=== PATIENT | female | born 1985 | race Caucasian/White ===

== ENCOUNTER 2016-07-16 21:41 | Inpatient (IN) | payer OTHER ==
[~2016-07-16] VITALS: Ht 165.1 cm; Wt 59.0 kg
[~2016-07-16 21:41] MED LIST: PUMP INSULIN MC; SYN1 PO
--- NOTE | 2016-07-16 23:29 | ERD ---
ER Documentation Chief Complaint Date/Time DATE: 07/16/16 TIME: 23:26 Chief Complaint c/o bilateral foot/leg swelling x1 week. sob when walking denies cp HPI 30-year-old female presents here in emergency department for complaints of bilateral lower leg swelling for 1 week now. Patient states that it has happened to her before but it did not last for a week. Patient is complaining of bilateral lower leg pain, sharp pain, 8/10 scale, now better or worse with anything. Patient states that she was cleaning the house today, was walking a lot. Patient is diabetic. Patient denies any redness on affected area. Patient denies any fever or chills. Patient does feel some shortness of breath at times and walking. Patient denies any chest pain or palpitations. Patient denies any dizziness. Patient currently takes Lantus and lispro to help with her diabetes type 1. Patient denies any trauma and lower extremities. Patient denies any numbness or tingling. ROS All systems reviewed and are negative except as per history of present illness. Medications Home Meds Active Scripts Levothyroxine Sodium* (Synthroid*) 100 Mcg Tablet, 100 MCG PO BEFORE BREAKFAST, #30 TAB Prov:KEVIN GAN NP 03/30/16 Reported Medications Insulin* PUMP (Insulin* PUMP) 1 Each Pump.resvr, 1 EACH MC . DIRECTED, JEROD 04/10/16 Allergies Allergies: Coded Allergies: No Known Allergy (Unverified , 03/29/16) PMhx/Soc History of Surgery: Yes (C/SECTION X1) Anesthesia Reaction: No Hx Neurological Disorder: No Hx Respiratory Disorders: No Hx Cardiac Disorders: No Hx Psychiatric Problems: No Hx Miscellaneous Medical Probl: Yes (DM, HYPOTHYROIDISM, ANEMIA) Hx Alcohol Use: Yes ("sometimes") Hx Substance Use: No Hx Tobacco Use: Yes Smoking Status: Never smoker FmHx Family History: No coronary disease, No diabetes, No other Physical Exam Vitals Vital Signs Date Time Temp Pulse Resp B/P Pulse Ox O2 Delivery O2 Flow Rate FiO2 07/16/16 22:15 98.4 88 20 179/102 98 Physical Exam GENERAL: The patient is well developed and appropriate for usual state of health, in no apparent distress. CHEST: Clear to auscultation bilaterally. There are no rales, wheezes or rhonchi. HEART: Regular rate and rhythm. No murmurs, clicks, rubs or gallops. No S3 or S4. ABDOMEN: Soft, nontender and nondistended. Good bowel sounds. No rebound or guarding. No gross peritonitis. No gross organomegaly or masses. No Chan sign or McBurney point tenderness. BACK: No midline or flank tenderness. EXTREMITIES: Noted bilateral lower extremities +2 pitting edema, nonerythematous. Negative Homans sign. Equal pulses bilaterally. Full range of motion of other joints of the body. Grossly neurovascularly intact. NEURO: Alert and oriented. Cranial nerves 2-12 intact. Motor strength in all 4 extremities with 5/5 strength. Sensation grossly intact. Normal speech and gait. SKIN: There is no apparent rash or petechia. The skin is warm and dry. HEMATOLOGIC AND LYMPHATIC: There is no evidence of excessive bruising or lymphedema. No gross cervical, axillary, or inguinal lymphadenopathy. Results 24 hrs Laboratory Tests Test 07/16/16 23:38 07/16/16 23:42 Bedside Glucose > 595mg/dL Joshua Test N/A Arterial Blood Date Drawn 07/17/2016 12:11:50 AM Arterial Blood Gas Puncture Site VENOUS LINE Blood Gas Modality ROOM AIR Blood Gas Notified Time 07/17/2016 12:20:44 AM Blood Gas Notified Whom BR Blood Gas Specimen Source Blood venous Blood Gas Temperature 37.0C Carboxyhemoglobin 0.1% FiO2 21.0% Venous Blood Base Excess -3.1mmol/L Venous Blood HCO3 21.7mmol/L Venous Blood Methemoglobin 0.1% Venous Blood Oxygen Saturation 35.6mmHG Venous Blood Oxyhemoglobin 35.5% Venous Blood Total Hemoglobin 12.4g/dl Venous Blood pCO2 (Temp Corrected) 38.0mmHG Venous Blood pH 7.374 Venous Blood pO2 (Temp Corrected) 23.6mmHG I discussed this case with my attending physician, Dr. Sanon, patient has elevated blood glucose, considering her history of DKA, patient will be transferred to ER 1 for further evaluation and treatment, pending order results at this time. Departure Diagnosis: Primary Impression: Hyperglycemia Condition: Stable TERENCE GONZALEZ NP Jul 16, 2016 23:29
[2016-07-17] VITALS (16 sets, daily range): BP systolic 102–126; BP diastolic 66–89; PULSE 96–113; RESP 14–20; Ht 165.1 cm; Wt 59.0 kg
[2016-07-17 00:20] LABS: MODE ROOM AIR; MetHgb Venous 0.1 %; Sample Type Blood venous; Venous COHb 0.1 %; Venous Fraction OxyHgb 35.5 %; Venous Total Hemglobin 12.4 g/dl
[2016-07-17 00:25] LABS: ADD SCAN DIFF NO
[2016-07-17 00:29] LABS: BASOPHIL # 0.1 10^3/ul (0.0-0.1); BASOPHILS % 0.9 % (0.0-2.0); EOSINOPHILS % 0.4 % (0.0-7.0); HEMATOCRIT 34.3 % (37.0-47.0); HEMOGLOBIN 10.6 g/dl (12.0-16.0); LYMPHOCYTES # 2.1 10^3/ul (0.8-2.9); LYMPHOCYTES % 40.1 % (15.0-51.0); MEAN CORPUSCULAR HEMOGLOBIN 27.6 pg (29.0-33.0); MEAN CORPUSCULAR HGB CONC 30.9 g/dl (32.0-37.0); MEAN CORPUSCULAR VOLUME 89.3 fl (82.0-101.0); MEAN PLATELET VOLUME 9.6 fl (7.4-10.4); MONOCYTE # 0.6 10^3/ul (0.3-0.9); MONOCYTES % 11.3 % (0.0-11.0); NEUTROPHIL # 2.5 10^3/ul (1.6-7.5); NEUTROPHILS % 46.9 % (39.0-77.0); PLATELET COUNT 371 10^3/UL (140-415); RED BLOOD COUNT 3.84 10^6/ul (4.20-5.40); RED CELL DISTRIBUTION WIDTH 18.7 % (11.5-14.5); WHITE BLOOD COUNT 5.3 10^3/ul (4.8-10.8)
[2016-07-17 00:41] LABS: ALBUMIN 4.1 g/dl (3.3-4.9)
[2016-07-17 00:42] LABS: POTASSIUM 4.6 mmol/L (3.5-5.1)
[2016-07-17 00:44] LABS: ALBUMIN/GLOBULIN RATIO 0.83; BILIRUBIN,INDIRECT 0.6 mg/dl (0-1.1); BILIRUBIN,TOTAL 0.6 mg/dl (0.2-1.3); CREATININE 0.53 mg/dl (0.44-1.00)
[2016-07-17 00:45] LABS: CALCIUM 9.5 mg/dl (8.4-10.2)
--- NOTE | 2016-07-17 00:48 | RADRPT ---
AMENDMENT: 07/17/2016 12:49:09 AM Jaron Winters D.O PROCEDURE: XR Chest. CLINICAL INDICATION: Shortness of breath. TECHNIQUE: Portable AP upright view of the chest was obtained. COMPARISON: 03/29/2016 FINDINGS: The cardiomediastinal silhouette is within normal limits. The lungs are clear. There is no evidenc e for pleural effusion, pneumothorax or pulmonary vascular congestion. The osseous structures are i ntact with no evidence for acute abnormality. RPTAT:HJJR IMPRESSION: No evidence for acute intrathoracic pathology or interval change from 03/29/2016. Physician Ciera Date Time Electronically viewed and signed by Elder Winters Physician on 07/17/2016 00:49 /
--- NOTE | 2016-07-17 00:49 | RADRPT ---
PROCEDURE: US Lower extremity Venous. CLINICAL INDICATION: Leg pain and swelling TECHNIQUE: Multiple sonographic images of the bilateral lower extremity deep venous system was obt ained utilizing grayscale, color-flow, compressive sonography and doppler imaging with augmentation. COMPARISON: None. FINDINGS: There is normal compressibility / flow within the bilateral common femoral, femoral and popliteal ve ins. The visualized deep veins of the calf are unremarkable. RPTAT:HJJR IMPRESSION: No sonographic evidence for deep venous thrombosis of either lower extremity. Physician Ciera Date Time Electronically viewed and signed by Physician Ciera on 07/17/2016 00:48 /
[2016-07-17] MEDS ORDERED: morphine 4 MG/ML VIAL IV STA (00:53)
[2016-07-17] MEDS ORDERED: ONDANSETRON 4 MG INJ IV STA (00:53)
[2016-07-17] MEDS ORDERED: SOD CHLORIDE 0.9% 1,000 ML IV ONE (01:00)
[2016-07-17] MEDS ORDERED: INSULIN REGULAR, HUMAN 100 UNIT in SOD CHLORIDE 0.9% 99 ML IV STA ×2 (01:09)
[2016-07-17] MEDS ORDERED: INSULIN REGULAR, HUMAN 100 UNIT/1 ML 3ML VIAL IV STA (01:09)
--- NOTE | 2016-07-17 01:45 | ERD ---
ER Documentation Chief Complaint Date/Time DATE: 07/17/16 TIME: 01:44 Chief Complaint c/o bilateral foot/leg swelling x1 week. sob when walking denies cp HPI This is a 22-year-old female comes of bilateral fullness and swelling for the past week. Patient also says her blood sugars were running high. Denies any vomiting but has had positive. Denies any fevers or chills. Denies any other current complaints. ROS All systems reviewed and are negative except as per history of present illness. Medications Home Meds Active Scripts Levothyroxine Sodium* (Synthroid*) 100 Mcg Tablet, 100 MCG PO BEFORE BREAKFAST, #30 TAB Prov:KEVIN GAN CHAPERONE 03/30/16 Reported Medications Insulin* PUMP (Insulin* PUMP) 1 Each Pump.resvr, 1 EACH MC . DIRECTED, JEROD 04/10/16 Allergies Allergies: Coded Allergies: No Known Allergy (Unverified , 03/29/16) PMhx/Soc History of Surgery: Yes (C/SECTION X1) Anesthesia Reaction: No Hx Neurological Disorder: No Hx Respiratory Disorders: No Hx Cardiac Disorders: No Hx Psychiatric Problems: No Hx Miscellaneous Medical Probl: Yes (DM, HYPOTHYROIDISM, ANEMIA) Hx Alcohol Use: Yes ("sometimes") Hx Substance Use: No Hx Tobacco Use: Yes Smoking Status: Never smoker Physical Exam Vitals Vital Signs Date Time Temp Pulse Resp B/P Pulse Ox O2 Delivery O2 Flow Rate FiO2 07/16/16 22:15 98.4 88 20 179/102 98 Physical Exam Const: [] Head: Atraumatic Eyes: Normal Conjunctiva ENT: Normal External Ears, Nose and Mouth. Neck: Full range of motion..~ No meningismus. Resp: Clear to auscultation bilaterally Cardio: Regular rate and rhythm, no murmurs Abd: Soft, non tender, non distended. Normal bowel sounds Skin: No petechiae or rashes Back: No midline or flank tenderness Ext: No cyanosis, or edema Neur: Awake and alert Psych: Normal Mood and Affect Result Diagram: 07/17/16 0005 07/17/16 0005 Results 24 hrs Laboratory Tests Test 07/16/16 23:38 07/16/16 23:42 07/17/16 00:05 Bedside Glucose > 595mg/dL Joshua Test N/A Arterial Blood Date Drawn 07/17/2016 12:11:50 AM Arterial Blood Gas Puncture Site VENOUS LINE Blood Gas Modality ROOM AIR Blood Gas Notified Time 07/17/2016 12:20:44 AM Blood Gas Notified Whom BR Blood Gas Specimen Source Blood venous Blood Gas Temperature 37.0C Carboxyhemoglobin 0.1% FiO2 21.0% Venous Blood Base Excess -3.1mmol/L Venous Blood HCO3 21.7mmol/L Venous Blood Methemoglobin 0.1% Venous Blood Oxygen Saturation 35.6mmHG Venous Blood Oxyhemoglobin 35.5% Venous Blood Total Hemoglobin 12.4g/dl Venous Blood pCO2 (Temp Corrected) 38.0mmHG Venous Blood pH 7.374 Venous Blood pO2 (Temp Corrected) 23.6mmHG Alanine Aminotransferase (ALT/SGPT) 55IU/L Albumin 4.1g/dl Albumin/Globulin Ratio 0.83 Alkaline Phosphatase 345IU/L Anion Gap 30 Aspartate Amino Transf (AST/SGOT) 92IU/L Basophils # 0.110^3/ul Basophils % 0.9% Blood Urea Nitrogen 14mg/dl Calcium Level 9.5mg/dl Carbon Dioxide Level 21mmol/L Chloride Level 89mmol/L Creatinine 0.53mg/dl Direct Bilirubin 0.00mg/dl Eosinophils # 0.010^3/ul Eosinophils % 0.4% Globulin 4.90g/dl Glucose Level 615mg/dl Hematocrit 34.3% Hemoglobin 10.6g/dl Indirect Bilirubin 0.6mg/dl Lactic Acid Level 1.6mmol/L Lipase 321U/L Lymphocytes # 2.110^3/ul Lymphocytes % 40.1% Mean Corpuscular Hemoglobin 27.6pg Mean Corpuscular Hemoglobin Concent 30.9g/dl Mean Corpuscular Volume 89.3fl Mean Platelet Volume 9.6fl Monocytes # 0.610^3/ul Monocytes % 11.3% Neutrophils # 2.510^3/ul Neutrophils % 46.9% Nucleated Red Blood Cells # 0.010^3/ul Nucleated Red Blood Cells % 0.0/100WBC Platelet Count 99160^3/UL Potassium Level 4.6mmol/L Red Blood Count 3.8410^6/ul Red Cell Distribution Width 18.7% Sodium Level 135mmol/L Total Bilirubin 0.6mg/dl Total Protein 9.0g/dl White Blood Count 5.310^3/ul Current Medications Medications (Trade) Dose Ordered Sig/Maya Route PRN Reason Start Time Stop Time Status Last Admin Dose Admin Sodium Chloride (NS) 1,000 ml @ 1,000 mls/hr Q1H ONCE IV 07/17/16 01:00 07/17/16 01:59 07/17/16 01:23 Morphine Sulfate (morphine) 4 mg ONCE STAT IV 07/17/16 00:53 07/17/16 00:54 DC 07/17/16 01:23 Ondansetron HCl (Zofran Inj) 4 mg ONCE STAT IV 07/17/16 00:53 07/17/16 00:54 DC 07/17/16 01:22 Insulin Human Regular 8 unit 8 unit ONCE STAT IV 07/17/16 01:09 07/17/16 01:22 DC Insulin Human Regular/Sodium Chloride (Humulin R/NS) 100 ml @ 5.9 mls/hr TITRATE STAT IV 07/17/16 01:09 07/17/16 18:05 Procedures/MDM Medical decision-makin year female as well as B evidence of early diabetic ketoacidosis. Patient has a sinusitis past medical advice at this point.. Upon elopement, patient alert and oriented 4 with goal oriented speech and good decision-making capacity. Departure Diagnosis: Primary Impression: Hyperglycemia Condition: Stable MARIELLE STEVEN Jul 17, 2016 01:45
[2016-07-17] MEDS ORDERED: LORAZEPAM 2 MG INJ IV ONE (03:00)
[2016-07-17 03:35] LABS: ADD UMIC YES; URINE BILIRUBIN (Dip) NEGATIVE (NEGATIVE); URINE BLOOD (Dip) NEGATIVE (NEGATIVE); URINE COLOR LT. YELLOW (YELLOW); URINE GLUCOSE (Dip) >=1000 % (NEGATIVE); URINE KETONES (Dip) 3+ (NEGATIVE); URINE LEUKOCYTE ESTERASE (Dip) TRACE (NEGATIVE); URINE NITRITE (Dip) NEGATIVE (NEGATIVE); URINE TOTAL PROTEIN (Dip) TRACE (NEGATIVE); URINE UROBILINOGEN (Dip) 0.2 E.U./dL (0.1-1.0)
[2016-07-17 03:42] LABS: BACTERIA,URINE FEW; SQUAMOUS EPITHELIAL CELL,UR MANY; URINE RBCS 0-2 /HPF (0)
[2016-07-17] MEDS ORDERED: SOD CHLORIDE 0.9% 1,000 ML IV SCH ×2 (04:31)
--- NOTE | 2016-07-17 04:57 | QN ---
Documentation Comment Patient decided against leaving AMA. Adm,itted to ICU on insulin drip to hospitalist MARIELLE STEVEN Jul 17, 2016 04:57
[2016-07-17] MEDS ORDERED: LORAZEPAM 2 MG INJ IV PRN (05:00)
[2016-07-17] MEDS ORDERED: DEXTROSE 50% 50 ML SYRINGE IV PRN ×4 (05:00→12:30)
[2016-07-17] MEDS ORDERED: MAGNESIUM HYDROXIDE 30ML CUP PO PRN (05:00)
[2016-07-17] MEDS ORDERED: INSULIN REGULAR, HUMAN 100 UNIT in SOD CHLORIDE 0.9% 99 ML IV SCH ×2 (05:00)
[2016-07-17] MEDS ORDERED: NITROGLYCERIN (SL) 0.4 MG TAB SL PRN (05:00)
[2016-07-17] MEDS ORDERED: ONDANSETRON 4 MG INJ IV PRN (05:00)
[2016-07-17] MEDS ORDERED: NACL 0.9% 3 ML SYG IV SCH (05:00)
[2016-07-17] MEDS ORDERED: ALBUTEROL/IPRATROPIUM (NEB) 3 ML AMP HHN PRN (05:00)
[2016-07-17] MEDS ORDERED: POTASSIUM CHLORIDE 50 ML IVPB PRN (05:00)
[2016-07-17] MEDS ORDERED: NA PHOSPHATE/BIPHOS 133 ML ENEMA PR PRN (05:00)
[2016-07-17] MEDS ORDERED: HYDROCODONE/APAP (5/325) TAB PO PRN (05:00)
[2016-07-17] MEDS ORDERED: ACETAMINOPHEN 325 MG TAB PO PRN (05:00)
[2016-07-17] MEDS ORDERED: DOCUSATE SODIUM 100 MG CAP PO PRN (05:00)
[2016-07-17] MEDS ORDERED: LACTATED RINGER'S 1,000 ML IV SCH (05:31)
[2016-07-17] MEDS: ACCUCHECK XX SCH ×10 (06:00→14:36)
[2016-07-17] MEDS ORDERED: LIDOCAINE 1% (MDV) 20 ML INJ ONE (06:30)
[2016-07-17] MEDS ORDERED: POTASSIUM CHLORIDE 10 MEQ in SOD CHLORIDE 0.9% 1,000 ML IV SCH (06:31)
[2016-07-17 06:36] LABS: POTASSIUM 3.6 mmol/L (3.5-5.1)
[2016-07-17 06:38] LABS: CREATININE 0.46 mg/dl (0.44-1.00)
[2016-07-17 06:39] LABS: CALCIUM 8.7 mg/dl (8.4-10.2)
[2016-07-17] MEDS: PANTOPRAZOLE 40 MG INJ IV SCH (06:59)
[2016-07-17] MEDS ORDERED: DEXTROSE 5%-0.9% NACL 1,000 ML IV SCH (07:00)
--- NOTE | 2016-07-17 07:39 | HP ---
DATE OF ADMISSION: 07/17/2016 CHIEF COMPLAINT: Foot swelling and elevated blood sugars. HISTORY OF PRESENT ILLNESS: A 30-year-old female with past medical history of type 1 diabetes and p rior DKA, hypothyroidism, noncompliant with medicines who presents with foot pain. She also had bee n having some weakness symptoms as well. The patient was almost going to leave against medical advi ce, but some blood work was performed in the ER today, and she was found with elevated blood sugars of 615 and her anion gap was elevated and signs of diabetic ketoacidosis. Patient claims she is westley ing her medicines at home. She has been having some weakness symptoms; however, no fevers or chills . No significant chest pain, no diarrhea, no constipation. Again, she has had multiple admissions for DKA in the past and is thought to be due to noncompliance. The patient was last here at our [facility] from 03/29/2016 to 03/30/2016 for DKA at that time. PAST MEDICAL HISTORY: As stated above. ALLERGIES: NO KNOWN DRUG ALLERGIES. HOME MEDICATIONS: 1. Synthroid 100 mcg before breakfast. 2. Apparently an insulin pump, she uses at home. PAST SURGICAL HISTORY: She had x1 in the past. FAMILY HISTORY: Noncontributory. SOCIAL HISTORY: Positive for tobacco use, does not specify further. She says she "sometimes" uses alcohol, does not further specify. PHYSICAL EXAMINATION: VITAL SIGNS: T-max 98.4, pulse 80, respirations 20, blood pressure 179/103, satting at 98% on room air. GENERAL: The patient is lying in bed, asking for water and for food, otherwise no acute distress. HEENT: Pupils equal, round, react to light. Extraocular muscles intact. NECK: Supple, no thyromegaly. LUNGS: Clear to auscultation bilaterally. CARDIOVASCULAR: S1, S2 heard. No rubs or gallops. ABDOMEN: Soft, nontender, nondistended. Normal bowel sounds. No rebound or guarding. MUSCULOSKELETAL: No lower extremity edema bilaterally. NEUROLOGIC: No focal deficits. LABORATORY DATA: Again the sodium 135, potassium 4.6, chloride 89, CO2 30, BUN 14, creatinine 0.52, glucose 615, CO2 21. Anion gap was 30. WBC 5.3, hemoglobin 10.6, hematocrit 34.3, platelets 371. UA shows 3+ ketones and trace leukocyte esterase positive. The patient had lower extremity Doppler s performed and showed no evidence of any DVT bilateral lower extremities. Chest x-ray: No evidenc e of any acute intrathoracic pathology. ASSESSMENT AND PLAN: A 30-year-old female coming in with weakness symptoms and elevated blood sugar , signs of diabetic ketoacidosis and lower extremity pain. 1. Lower extremity pain. Again, her lower extremity ultrasound negative for deep venous thrombus. Continue to monitor for now. 2. Elevated blood sugars. She was in diabetic ketoacidosis. Diabetic ketoacidosis protocol, aggre ssive IV fluids and insulin drip, follow the protocol. Consider endocrinology consult. Check A1c. Check TSH and lipid panel as well. Antiemetic medicines as well, pain control medicines. 3. Hypothyroidism. Check thyroid panel, consider restarting Synthroid. 4. Gastrointestinal prophylaxis. Proton pump inhibitor. 5. Deep venous thrombosis prophylaxis. Heparin subcutaneously. Dictated By: MIRELLA CORLEY Conf#: [id number] DID#: [id number]
[2016-07-17] MEDS: morphine 2 MG INJ IV PRN (10:33)
[2016-07-17] MEDS: LEVOTHYROXINE 100 MCG TAB PO SCH (10:34)
[2016-07-17] MEDS: HEPARIN 5,000 UNIT/0.5 ML SYG SC SCH ×2 (10:40→21:00)
[2016-07-17 11:39] LABS: POTASSIUM 3.3 mmol/L (3.5-5.1)
[2016-07-17 11:42] LABS: CALCIUM 8.4 mg/dl (8.4-10.2); CREATININE 0.44 mg/dl (0.44-1.00)
[2016-07-17] MEDS ORDERED: Discontinue Glyburide, Glipizide, and/or Glimepiride prior to starting Insulin XX ONE (12:00)
[2016-07-17] MEDS ORDERED: INSULIN GLARGINE [LANtus] 3 ML PEN SC SCH (12:00)
[2016-07-17] MEDS ORDERED: HYPOGLYCEMIA PROTOCOL when Glucose is <70 mg/dL or symptomatic <90 mg/dL. XX ONE (12:00)
[2016-07-17] MEDS ORDERED: GLUCOSE GEL 15 GRAM TUBE PO PRN ×2 (12:30)
[2016-07-17] MEDS ORDERED: GLUCOSE GEL 15 GRAM TUBE BUCCAL PRN (12:30)
[2016-07-17] MEDS ORDERED: GLUCAGON 1 MG INJ IM PRN (12:30)
[2016-07-17] MEDS ORDERED: POTASSIUM CHLORIDE (SR) 20 MEQ TAB PO STA (16:17)
[2016-07-17] MEDS: INSULIN ASPART [NOVOLOG] 3 ML PEN SC SCH ×3 (17:36→21:00)
--- NOTE | 2016-07-17 18:21 | CONS ---
Date/Time of Note Date/Time of Note DATE: 07/17/16 TIME: 18:11 Assessment/Plan Assessment/Plan Problems: (1) Edema Status: Acute Comment: Difficult to determine cause. Dependent edema unusual in this age group. Would check thyroid function to make sure pt. on adequate thyroid replacement. Unlikely to be nephrotic syndrome given weak proteinuria on UA ( although pt. is at risk). 24-hour urine collection for protein and creatinine would rule this out but given pt. has never had 3-4+ proteinuria, doesn't seem necessary. Advise wrapping BLE in compression stockings and f/u w/ vascular surgery as outpt. (2) Type 1 diabetes mellitus with hyperglycemia Status: Chronic Comment: DKA resolved. Resume lantus 40 daily and Novolog 12 qac. Pt. will need Rx before d/c. (3) Hypothyroidism Status: Chronic Comment: Check TFT's. Resume synthroid. Consultation Date/Type/Reason Admit Date/Time Jul 17, 2016 at 04:34 Date of Consultation: Jul 17, 2016 Type of Consultation: Endocrinology Reason for Consultation DKA Referring Provider: MIRELLA JACQUES Hx of Present Illness 30 y/o HF w/ h/o T1DM and hypothyroidism in [facility] until last week when she began to develop swelling in BLE. She has had this before when eating too much salt but never to this extent and never lasting this long. Decided to come to ER. Was planning to leave ER but they checked her glucose and it was > 600 mg/dL. She says that was her fault b/c she had just eaten and had just had a coke. Labs showed pt. was in mild DKA w/ AG open, (+) ketones, CO2 initially NL but subsequently as low as 18. Pt. placed in ICU and started on insulin drip. Legs still swollen but not as bad. Constitutional: improved, no complaints Eyes: no complaints ENT: no complaints Respiratory: no complaints Cardiovascular: edema Gastrointestinal: no complaints Genitourinary: no complaints Musculoskeletal: swelling Neurologic: no complaints Endocrine: no complaints Past Medical History Medical History: diabetes, hypothyroid Past Surgical History Past Surgical Hx: other (c-sectx2) Family History Significant Family History: diabetes (T1DM in father, T2DM in mother), hypertension (mother) Social History b. 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, lives w/ child's father, 1 child, 1 stillbirth Alcohol Use: occasionally Smoking Status: Current some day smoker Drug Use: other (brief meth use in past) Exam/Review of Systems Vital Signs Vitals Vital Signs Date Time Temp Pulse Resp B/P Pulse Ox O2 Delivery O2 Flow Rate FiO2 07/17/16 16:00 102 07/17/16 15:00 17 104/67 98 Room Air 07/17/16 12:00 97.8 Intake and Output 07/16/16 07/16/16 07/17/16 15:00 23:00 07:00 Intake Total 2.125 ml Balance 2022.125 ml Exam Constitutional: alert, oriented, well developed Psych: nl mood/affect, no complaints Eyes: EOMI, PERRL, nl conjunctiva, nl lids, nl sclera ENMT: mucosa pink and moist, nl external ears & nose Neck: non-tender, supple, No bruits, No masses, No thyromegaly Respiratory: clear to auscultation, normal air movement Cardiovascular: edema (1+ BLE), nl pulses, regular rate and rhythm, No murmurs/extra sounds, No rub Gastrointestinal: bowel sounds, nl liver, spleen, non-tender, soft, No mass, No rebound or guarding Musculoskeletal: nl extremities to inspection Extremities: edema (1+ BLE), normal pulses, No clubbing, No cyanosis 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, nl mental status, nl speech, nl strength Additional Comments Bedside Glucose - 72 Hours Test 07/16/16 23:38 07/17/16 02:56 07/17/16 04:32 07/17/16 05:22 Bedside Glucose > 595mg/dL (70-220) *H 541mg/dL (70-220) *H 343mg/dL (70-220) H 295mg/dL (70-220) H Test 07/17/16 06:26 07/17/16 08:11 07/17/16 09:13 07/17/16 10:15 Bedside Glucose 199mg/dL (70-220) 141mg/dL (70-220) 102mg/dL (70-220) 85mg/dL (70-220) Test 07/17/16 11:05 07/17/16 12:09 07/17/16 13:14 07/17/16 14:23 Bedside Glucose 94mg/dL (70-220) 83mg/dL (70-220) 80mg/dL (70-220) 111mg/dL (70-220) Test 07/17/16 17:34 Bedside Glucose 167mg/dL (70-220) Results Result Diagram: 07/17/16 0005 07/17/16 1050 Results 24 hrs Laboratory Tests Test 07/16/16 23:38 07/16/16 23:42 07/17/16 00:05 07/17/16 02:56 Bedside Glucose > 595 *H 541 *H Joshua Test N/A Arterial Blood Date Drawn 07/17/2016 12:11:50 AM Arterial Blood Gas Puncture Site VENOUS LINE Blood Gas Modality ROOM AIR Blood Gas Notified Time 07/17/2016 12:20:44 AM Blood Gas Notified Whom BR Blood Gas Specimen Source Blood venous Blood Gas Temperature 37.0 Carboxyhemoglobin 0.1 FiO2 21.0 Venous Blood Base Excess -3.1 Venous Blood HCO3 21.7 L Venous Blood Methemoglobin 0.1 Venous Blood Oxygen Saturation 35.6 L Venous Blood Oxyhemoglobin 35.5 Venous Blood Total Hemoglobin 12.4 Venous Blood pCO2 (Temp Corrected) 38.0 Venous Blood pH 7.374 Venous Blood pO2 (Temp Corrected) 23.6 L Alanine Aminotransferase (ALT/SGPT) 55 Albumin 4.1 Albumin/Globulin Ratio 0.83 Alkaline Phosphatase 345 H Anion Gap 30 H Aspartate Amino Transf (AST/SGOT) 92 H Basophils # 0.1 Basophils % 0.9 Blood Urea Nitrogen 14 Calcium Level 9.5 Carbon Dioxide Level 21 Chloride Level 89 L Creatinine 0.53 Direct Bilirubin 0.00 Eosinophils # 0.0 Eosinophils % 0.4 Globulin 4.90 H Glucose Level 615 *H Hematocrit 34.3 L Hemoglobin 10.6 L Indirect Bilirubin 0.6 Lactic Acid Level 1.6 Lipase 321 H Lymphocytes # 2.1 Lymphocytes % 40.1 Mean Corpuscular Hemoglobin 27.6 #L Mean Corpuscular Hemoglobin Concent 30.9 L Mean Corpuscular Volume 89.3 # Mean Platelet Volume 9.6 # Monocytes # 0.6 Monocytes % 11.3 H Neutrophils # 2.5 Neutrophils % 46.9 Nucleated Red Blood Cells # 0.0 Nucleated Red Blood Cells % 0.0 Platelet Count 371 Potassium Level 4.6 Red Blood Count 3.84 #L Red Cell Distribution Width 18.7 H Sodium Level 135 Total Bilirubin 0.6 Total Protein 9.0 H White Blood Count 5.3 # Test 07/17/16 04:32 07/17/16 05:22 07/17/16 05:45 07/17/16 06:26 Bedside Glucose 343 H 295 H 199 Anion Gap 25 H Blood Urea Nitrogen 12 Calcium Level 8.7 Carbon Dioxide Level 18 L Chloride Level 100 # Creatinine 0.46 Fasting Glucose 268 H Free Thyroxine 0.74 L Glucose Level 268 #H Hemoglobin A1c Phosphorus Level 3.4 Potassium Level 3.6 Sodium Level 139 Test 07/17/16 08:11 07/17/16 09:13 07/17/16 10:15 07/17/16 10:50 Bedside Glucose 141 102 85 Anion Gap 10 # Blood Urea Nitrogen 10 Calcium Level 8.4 Carbon Dioxide Level 31 # Chloride Level 102 Creatinine 0.44 Glucose Level 75 # Potassium Level 3.3 L Sodium Level 140 Test 07/17/16 11:05 07/17/16 12:09 07/17/16 13:14 07/17/16 14:23 Bedside Glucose 94 83 80 111 Test 07/17/16 17:34 Bedside Glucose 167 Medications Medications Current Medications Ondansetron HCl (Zofran Inj) 4 mg Q6H PRN IV NAUSEA AND/OR VOMITING; Start 07/17 at 05:00 Acetaminophen (Tylenol Tab) 650 mg Q6H PRN PO PAIN LEVEL 1-3 OR FEVER; Start at 05:00 Acetaminophen/ Hydrocodone Bitart ([place] (5/325)) 1 tab Q6H PRN PO MODERATE PAIN LEVEL 4-6 Last administered on 07/17/16 14:37; Admin Dose 1 TAB; Start 07/17 at 05:00 Morphine Sulfate (morphine) 2 mg Q4H PRN IV SEVERE PAIN LEVEL 7-10 Last administered on 07/17/16 10:33; Admin Dose 2 MG; Start 07/17/16 at 05:00 Docusate Sodium (Colace) 100 mg Q12H PRN PO CONSTIPATION; Start 07/17/16 at 05: 00 Magnesium Hydroxide (Milk Of Mag) 30 ml DAILY PRN PO CONSTIPATION; Start at 05:00 Sodium Biphosphate/ Sodium Phosphate (Fleet Enema) 133 ml DAILY PRN AL CONSTIPATION; Start 07/17/16 at 05:00 Pantoprazole (Protonix Iv) 40 mg DAILY@06 IV Last administered on 07/17/16 06: 59; Admin Dose 40 MG; Start 07/17/16 at 06:00 Heparin Sodium (Porcine) (Heparin (5000 Units/0.5 ml)) 5,000 unit Q12 SC Last administered on 07/17/16 10:40; Admin Dose 5,000 UNIT; Start 07/17/16 at 09:00 Lorazepam (Ativan) 0.5 mg Q6H PRN IV ANXIETY; Start 07/17/16 at 05:00 Nitroglycerin (Nitroglycerin (Sl Tab) 0.4 Mg) 1 tab Q5M PRN SL ANGINA; Start at 05:00 Diagnostic Test (Pha) (Accucheck) 1 ea 02 XX ; Start 07/18/16 at 02:00 Miscellaneous Information 1 ea NOTE XX ; Start 07/17/16 at 12:30 Glucose (Glutose) 15 gm Q15M PRN PO DECREASED GLUCOSE; Start 07/17/16 at 12:30 Glucose (Glutose) 22.5 gm Q15M PRN PO DECREASED GLUCOSE; Start 07/17/16 at 12:30 Dextrose (D50w Syringe) 25 ml Q15M PRN IV DECREASED GLUCOSE; Start 07/17/16 at 12:30 Dextrose (D50w Syringe) 50 ml Q15M PRN IV DECREASED GLUCOSE; Start 07/17/16 at 12:30 Glucagon (Glucagen) 1 mg Q15M PRN IM DECREASED GLUCOSE; Start 07/17/16 at 12:30 Glucose (Glutose) 15 gm Q15M PRN BUCCAL DECREASED GLUCOSE; Start 07/17/16 at 12: 30 Insulin Glargine (Lantus) 40 unit DAILY@08 SC ; Start 07/18/16 at 08:00 BETHANIE GUTIERREZ MD Jul 17, 2016 18:21
[2016-07-18] MEDS ORDERED: ACCUCHECK XX SCH ×2 (02:00)
[2016-07-18] MEDS: PANTOPRAZOLE 40 MG INJ IV SCH (06:03)
[2016-07-18] MEDS: LEVOTHYROXINE 100 MCG TAB PO SCH (06:04)
[2016-07-18 06:43] LABS: THYROID STIMULATING HORMONE 7.73 MIU/L (0.465-4.680)
[2016-07-18 07:22] VITALS: BP 101/64; RESP 22
[2016-07-18 07:28] LABS: ADD SCAN DIFF NO
[2016-07-18 07:36] LABS: BASOPHIL # 0.1 10^3/ul (0.0-0.1); BASOPHILS % 0.7 % (0.0-2.0); EOSINOPHILS # 0.1 10^3/ul (0.0-0.5); EOSINOPHILS % 0.8 % (0.0-7.0); HEMOGLOBIN 8.4 g/dl (12.0-16.0); LYMPHOCYTES # 1.7 10^3/ul (0.8-2.9); MEAN CORPUSCULAR HEMOGLOBIN 27.3 pg (29.0-33.0); MEAN CORPUSCULAR VOLUME 90.9 fl (82.0-101.0); MEAN PLATELET VOLUME 8.9 fl (7.4-10.4); MONOCYTE # 0.6 10^3/ul (0.3-0.9); NEUTROPHIL # 4.8 10^3/ul (1.6-7.5); NEUTROPHILS % 66.1 % (39.0-77.0); PLATELET COUNT 334 10^3/UL (140-415); RED BLOOD COUNT 3.08 10^6/ul (4.20-5.40); RED CELL DISTRIBUTION WIDTH 18.4 % (11.5-14.5); WHITE BLOOD COUNT 7.2 10^3/ul (4.8-10.8)
[2016-07-18 07:40] LABS: POTASSIUM 4.7 mmol/L (3.5-5.1)
[2016-07-18 07:43] LABS: CREATININE 0.53 mg/dl (0.44-1.00)
[2016-07-18 07:44] LABS: CALCIUM 8.5 mg/dl (8.4-10.2); MAGNESIUM 1.8 mg/dl (1.7-2.5); PHOSPHORUS 3.9 mg/dl (2.5-4.9)
[2016-07-18] MEDS ORDERED: INSULIN GLARGINE [LANtus] 3 ML PEN SC SCH (08:00)
[2016-07-18] MEDS: morphine 2 MG INJ IV PRN (08:10)
[2016-07-18] MEDS: HEPARIN 5,000 UNIT/0.5 ML SYG SC SCH ×2 (08:19→09:00)
[2016-07-18] MEDS: INSULIN ASPART [NOVOLOG] 3 ML PEN SC SCH ×4 (08:21→12:15)
[2016-07-18] MEDS ORDERED: LANT3I SC (13:28)
[2016-07-18] MEDS ORDERED: NOVO3I SC (13:28)
--- NOTE | 2016-07-18 17:41 | CONS ---
Date/Time of Note Date/Time of Note DATE: 07/18/16 TIME: 17:32 Assessment/Plan Assessment/Plan Problems: (1) Type 1 diabetes mellitus with hyperglycemia Status: Chronic Comment: BG has been in fair control, occ. above goal. Ok to be d/c'ed home today on current insulin doses. (2) Hypothyroidism Status: Chronic Comment: Subtherapeutic. Admits to poor adherence. Advise improving adherence. 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 Consultation Date/Type/Reason Admit Date/Time Jul 17, 2016 at 04:34 Initial Consult Date 07/17/16 Type of Consultation: Endocrinology Reason for Consultation DKA Referring Provider: MIRELLA JACQUES 24 HR Interval Summary Constitutional: improved, no complaints Detailed Summary Respiratory: no complaints Cardiovascular: no complaints Gastrointestinal: no complaints Genitourinary: no complaints Musculoskeletal: swelling Neurologic: no complaints Exam/Review of Systems Vital Signs Vitals VS - Last 72 Hours, by Label Date Time Temp Pulse Resp B/P Pulse Ox O2 Delivery O2 Flow Rate FiO2 07/18/16 07:22 98.4 98 22 101/64 98 07/17/16 21:01 98.0 102 18 110/66 98 07/17/16 20:00 112 20 118/83 100 Room Air 07/17/16 19:00 98.0 100 16 105/66 100 Room Air 07/17/16 18:00 105 20 126/89 100 Room Air 07/17/16 17:00 96 16 109/76 99 Room Air 07/17/16 16:00 98.2 96 15 102/71 98 Room Air 07/17/16 16:00 102 07/17/16 15:00 109 17 104/67 98 Room Air 07/17/16 14:00 109 15 111/72 99 Room Air 07/17/16 13:00 101 17 117/72 99 Room Air 07/17/16 12:00 102 07/17/16 12:00 97.8 104 14 107/69 99 Room Air 07/17/16 11:00 105 18 114/68 99 Room Air 07/17/16 10:00 103 17 122/78 100 Room Air 07/17/16 09:00 107 14 116/79 100 Room Air 07/17/16 08:00 101 07/17/16 08:00 98.0 101 14 103/72 99 Room Air 07/17/16 07:00 113 15 123/83 100 Room Air 07/17/16 06:14 108 07/17/16 05:47 100 16 133/94 99 Room Air 07/16/16 22:15 98.4 88 20 179/102 98 Vital Signs Date Time Temp Pulse Resp B/P Pulse Ox O2 Delivery O2 Flow Rate FiO2 07/18/16 07:22 98.4 98 22 101/64 98 07/17/16 20:00 Room Air Intake and Output 07/17/16 07/17/16 07/18/16 15:00 23:00 07:00 Intake Total 1395.75 ml 700 ml Balance 1395.75 ml 700 ml Exam Constitutional: alert, oriented, well developed Psych: nl mood/affect, no complaints Respiratory: clear to auscultation, normal air movement Cardiovascular: edema (1+ edema BLE), nl pulses, regular rate and rhythm, No murmurs/extra sounds, No rub Gastrointestinal: bowel sounds, nl liver, spleen, non-tender, soft, No mass, No rebound or guarding Musculoskeletal: nl extremities to inspection Extremities: edema (1+ BLE), normal pulses, No clubbing, No cyanosis Neurological: CLAIMS SPECIALIST II-XII intact, nl mental status, nl speech, nl strength Additional Comments Bedside Glucose - 72 Hours Test 07/16/16 23:38 07/17/16 02:56 07/17/16 04:32 07/17/16 05:22 Bedside Glucose > 595mg/dL (70-220) *H 541mg/dL (70-220) *H 343mg/dL (70-220) H 295mg/dL (70-220) H Test 07/17/16 06:26 07/17/16 08:11 07/17/16 09:13 07/17/16 10:15 Bedside Glucose 199mg/dL (70-220) 141mg/dL (70-220) 102mg/dL (70-220) 85mg/dL (70-220) Test 07/17/16 11:05 07/17/16 12:09 07/17/16 13:14 07/17/16 14:23 Bedside Glucose 94mg/dL (70-220) 83mg/dL (70-220) 80mg/dL (70-220) 111mg/dL (70-220) Test 07/17/16 17:34 07/17/16 20:54 07/18/16 07:54 07/18/16 11:44 Bedside Glucose 167mg/dL (70-220) 130mg/dL (70-220) 252mg/dL (70-220) H 76mg/dL (70-220) Test 07/18/16 12:56 Bedside Glucose 149mg/dL (70-220) Results Result Diagram: 07/18/16 0515 07/18/16 0515 Results 24 hrs Laboratory Tests Test 07/17/16 17:34 07/17/16 20:54 07/18/16 05:15 07/18/16 07:54 Bedside Glucose 167 130 252 H Anion Gap 12 Basophils # 0.1 Basophils % 0.7 Blood Urea Nitrogen 12 Calcium Level 8.5 Carbon Dioxide Level 28 Chloride Level 105 Cholesterol Level 272 H Cholesterol/HDL Ratio 10.0 Creatinine 0.53 Eosinophils # 0.1 Eosinophils % 0.8 Free Thyroxine Index 1.68 Glucose Level 209 # HDL Cholesterol 27 L Hematocrit 28.0 L Hemoglobin 8.4 #L Hemoglobin A1c LDL Cholesterol, Calculated 169 Lymphocytes # 1.7 Lymphocytes % 24.0 Magnesium Level 1.8 Mean Corpuscular Hemoglobin 27.3 L Mean Corpuscular Hemoglobin Concent 30.0 L Mean Corpuscular Volume 90.9 Mean Platelet Volume 8.9 Monocytes # 0.6 Monocytes % 8.0 Neutrophils # 4.8 Neutrophils % 66.1 Nucleated Red Blood Cells # 0.0 Nucleated Red Blood Cells % 0.0 Phosphorus Level 3.9 Platelet Count 334 Potassium Level 4.7 Red Blood Count 3.08 L Red Cell Distribution Width 18.4 H Sodium Level 140 Thyroid Stimulating Hormone (TSH) 7.730 H Thyroxine (T4) 4.2 L Triglycerides Level 379 H Triiodothyronine (T3) Uptake 40.0 White Blood Count 7.2 # Test 07/18/16 11:44 07/18/16 12:56 Bedside Glucose 76 149 BETHANIE GUTIERREZ MD Jul 18, 2016 17:41
--- NOTE | 2016-07-19 05:10 | DS ---
DATE OF ADMISSION: 07/17/2016 DATE OF DISCHARGE: 07/18/2016 FINAL DIAGNOSES: 1. Diabetic ketoacidosis, now resolved. 2. Chronic hypothyroidism with suboptimal control. 3. Urinary tract infection. 4. Lower extremity edema. CONSULTS ON THE CASE: Dr. Rudy Verma. INTERVENTIONS: The patient was managed for DKA using the DKA protocol, and she responded very well to regimen. She was restarted on home diabetic regimen. The patient was suspected to be noncomplia nt with her regimen because on her home regimen blood sugar was very well controlled. The patient a dmits to not using her thyroid medicine due to inability to time it to an empty stomach. SHORT HOSPITALIZATION COURSE: This patient was admitted for just over 24 hours. When she came in, serum blood glucose was in the 600 and was found to be in DKA. She was treated with insulin drip, a nd her anion gap quickly corrected itself with IV fluid hydration and insulin therapy. A urinalysis was suggestive of a UTI; however, the patient did not receive antibiotic regimen prior to being dis charged. I have attempted to call the numbers listed on the chart, but nobody is picking up to give an outpatient prescription for UTI therapy. We will continue to follow up on that. She, however, did well. Blood sugar became better controlled while in house. She was started on a diabetic diet with good response, and at this point, she is requesting to be discharged, and it is my opinion that she is safe to be discharged home. DISCHARGE CONDITION: Stable. DISCHARGE MEDICATIONS: Will include 1. Lantus 40 units daily. 2. NovoLog 12 units q. a.c. She is also to resume her home 3. Levothyroxine 100 mcg daily. She is also going to be started on 4. Levaquin 500 mg for 5 days for urinary tract infection. For her lower extremity edema, this improved while she was in house. There was some concern that th is was secondary to nephrotic syndrome, but her urinalysis was not suggestive of that. She is encou raged to follow up as an outpatient with her own senior master scheduler and primary care physician for furt her management. However, the patient does have a history of recurrent admission, and her compliance is very shaky. I have spoken with her in detail about the need to be compliant with her medication s. We have discussed the possible complications of diabetes mellitus that is uncontrolled. I have answered questions. DISCHARGE CONDITION: Stable. DIET: Recommended diet is 1800 ADA. ACTIVITIES: As tolerated. DISCHARGE MEDICATIONS: Per medical record. DISCHARGE TIME: 45 minutes. Dictated By: TERESO BRASHER MD BA/NTS Conf#: [id number] DID#: [id number]
[2016-07-19] MEDS ORDERED: PANTOPRAZOLE (EC) 40 MG TAB PO SCH (06:00)
[2016-07-19] MEDS ORDERED: LEVOTHYROXINE 125 MCG TAB PO SCH (07:00)
[2016-07-19] MEDS ORDERED: INFLUENZA VIRUS VACCINE 0.5 ML (DISPENSING) IM* ONE (09:00)
== END 2016-07-18 15:45 | disposition home or self-care (01) | DRG 638 ==
LOC: FTE 21:41 → ICU 07-17 04:34 → MS2 07-17 20:40
PROVIDERS: ADMIT Hospitalist; ATTEND Hospitalist
DX: E10.10 Type 1 diabetes mellitus with ketoacidosis without coma (principal); N39.0 Urinary tract infection, site not specified; E03.9 Hypothyroidism, unspecified; R60.9 Edema, unspecified
CPT/HCPCS: 36415; 71010; 80048; 80053; 80061; 81001; 81003; 82803; 82947; 82962; 83036; 83605; 83690; 83735; 84100; 84436; 84439; 84443; 84479; 85025; 87081; 87086; 93970; 96361; 96374; 96375; 96376; C9113; J1815; J2060; J2270; J2405; J3480; J7030; J7042; J7120

== ENCOUNTER 2016-08-16 02:53 | Inpatient (IN) | payer OTHER ==
[~2016-08-16] VITALS: Ht 165.1 cm; Wt 57.9 kg
[~2016-08-16 02:53] MED LIST changes: +LANT3I SC; +NOVO3I SC; -PUMP INSULIN MC
[2016-08-16] MEDS ORDERED: INSULIN LISPRO 100 UNIT/ML VIAL SC STA (03:07)
[2016-08-16] MEDS ORDERED: SOD CHLORIDE 0.9% 2,000 ML IV STA (03:07)
[2016-08-16] MEDS ORDERED: morphine 4 MG/ML VIAL IV STA (03:07)
[2016-08-16] MEDS ORDERED: ONDANSETRON 4 MG INJ IV STA (03:07)
[2016-08-16 03:21] LABS: ADD SCAN DIFF NO
[2016-08-16 03:29] LABS: ABNORMAL IP MESSAGE 1; BASOPHIL # 0.1 10^3/ul (0.0-0.1); BASOPHILS % 0.6 % (0.0-2.0); EOSINOPHILS % 0.1 % (0.0-7.0); HEMATOCRIT 36.9 % (37.0-47.0); HEMOGLOBIN 10.9 g/dl (12.0-16.0); LYMPHOCYTES # 6.2 10^3/ul (0.8-2.9); LYMPHOCYTES % 49.2 % (15.0-51.0); MEAN CORPUSCULAR HEMOGLOBIN 28.3 pg (29.0-33.0); MEAN CORPUSCULAR HGB CONC 29.5 g/dl (32.0-37.0); MEAN CORPUSCULAR VOLUME 95.8 fl (82.0-101.0); MEAN PLATELET VOLUME 9.3 fl (7.4-10.4); MONOCYTE # 1.3 10^3/ul (0.3-0.9); MONOCYTES % 10.2 % (0.0-11.0); NEUTROPHIL # 4.9 10^3/ul (1.6-7.5); NEUTROPHILS % 38.2 % (39.0-77.0); PLATELET COUNT 487 10^3/UL (140-415); RED BLOOD COUNT 3.85 10^6/ul (4.20-5.40); WHITE BLOOD COUNT 12.7 10^3/ul (4.8-10.8)
[2016-08-16 03:31] LABS: URINE BLOOD (Dip) POC Trace-lysed (NEGATIVE)
[2016-08-16 03:35] LABS: ALBUMIN 3.9 g/dl (3.3-4.9); CHLORIDE 97 mmol/L (97-110); SODIUM 139 mmol/L (135-144)
[2016-08-16 03:36] LABS: POTASSIUM 4.3 mmol/L (3.5-5.1)
[2016-08-16 03:37] LABS: BILIRUBIN,INDIRECT 0.1 mg/dl (0-1.1)
[2016-08-16 03:38] LABS: ALANINE AMINOTRANSFERASE 319 IU/L (13-69); ALKALINE PHOSPHATASE 500 IU/L (42-121); ASPARTATE AMINO TRANSFERASE 379 IU/L (15-46); BILIRUBIN,TOTAL 0.1 mg/dl (0.2-1.3); BLOOD UREA NITROGEN 14 mg/dl (7-20); PHOSPHORUS 7.9 mg/dl (2.5-4.9); TOTAL PROTEIN 9.4 g/dl (6.1-8.1)
[2016-08-16 03:39] LABS: CALCIUM 8.4 mg/dl (8.4-10.2); MAGNESIUM 2.2 mg/dl (1.7-2.5)
[2016-08-16 03:51] LABS: ADD UMIC YES; URINE BILIRUBIN (Dip) NEGATIVE (NEGATIVE); URINE BLOOD (Dip) TRACE (NEGATIVE); URINE COLOR LT. YELLOW (YELLOW); URINE KETONES (Dip) 3+ (NEGATIVE); URINE LEUKOCYTE ESTERASE (Dip) NEGATIVE (NEGATIVE); URINE NITRITE (Dip) NEGATIVE (NEGATIVE); URINE TOTAL PROTEIN (Dip) 1+ (NEGATIVE); URINE UROBILINOGEN (Dip) 0.2 E.U./dL (0.1-1.0)
[2016-08-16 04:01] LABS: ANION GAP 41 (8-16); TROPONIN-I < 0.012 ng/ml (0.00-0.12)
[2016-08-16 04:04] LABS: CARBON DIOXIDE < 5 mmol/L (21-31); GLUCOSE 692 mg/dl (70-220)
[2016-08-16] MEDS: INSULIN HUMAN REGULAR 100 UNIT in SOD CHLORIDE 0.9% 99 ML IV SCH ×2 (04:05→15:39)
--- NOTE | 2016-08-16 04:17 | RADRPT ---
PROCEDURE: XR Chest. CLINICAL INDICATION: Hyperglycemia. TECHNIQUE: Portable single view of the chest COMPARISON: 07/17/2016 FINDINGS: There has been shallower lung inflation accentuates the heart size which likely remains top normal. There is now suggestion of mild pulmonary vascular congestion. Probable bibasilar crowding. No de finite focal consolidation or pleural effusion. No bony abnormality is seen. IMPRESSION: Shallower lung inflation with probable bibasilar crowding. Question pulmonary vascular congestion. RPTAT: HLBE Fariba Alejandro Physician Date Time Electronically viewed and signed by Fariba Alejandro Physician on 08/16/2016 04:17 LE/
[2016-08-16 04:35] LABS: SQUAMOUS EPITHELIAL CELL,UR FEW; URINE RBCS 0-2 /HPF (0)
[2016-08-16 04:52] LABS: Allen Test ACCEPTAB; Arterial Base Excess -30.1 mmol/L (-3.0-3); Arterial COHb 0.3 % (0.0-3.0); Arterial Fraction of Oxyhgb 97.3 % (93.0-99.0); Arterial HCO3 1.8 mmol/L (22.0-26.0); Arterial MetHb 0.4 % (0.0-1.5); Arterial Total Hemglobin 11.5 g/dl (12.0-18.0); MODE ROOM AIR
[2016-08-16] MEDS ORDERED: INSULIN HUMAN REGULAR 100 UNIT in SOD CHLORIDE 0.9% 99 ML IV SCH ×2 (05:01→08:16)
[2016-08-16] MEDS ORDERED: SOD CHLORIDE 0.9% 1,000 ML IV SCH (05:01)
[2016-08-16] MEDS ORDERED: CEFEPIME 2GM/50 ML (PMX) 50 ML IVPB STA (05:04)
--- NOTE | 2016-08-16 05:09 | ERA ---
ER Documentation Chief Complaint Date/Time DATE: 08/16/16 TIME: 05:04 Chief Complaint DKA HPI This is a 31-year-old female well-known to us who comes in because of abdominal pain and elevated blood sugars. Patient is admitted essentially every 2 weeks for diabetic ketoacidosis. Patient seems to be noncompliant with all medical regimens. Abdominal pain is diffuse, moderate, no localizing, with no exacerbating or alleviating factors. No fevers no chills. No other current complaints ROS All systems reviewed and are negative except as per history of present illness. Medications Home Meds Active Scripts Insulin Aspart* (Novolog Insulin Pen*) 100 Unit/Ml Soln, 12 UNIT SC WITH MEALS for 30 Days, 2 Refills Prov:SAMEERADIDIERATITO M. 07/18/16 Insulin Glargine* (Lantus*) 100 Unit/Ml Soln, 40 UNIT SC DAILY@08 for 30 Days, 2 Refills Prov:SAMEERADIDIERATITO M. 07/18/16 Levothyroxine Sodium* (Synthroid*) 100 Mcg Tablet, 100 MCG PO BEFORE BREAKFAST, #30 TAB Prov:KEVIN GAN NP 03/30/16 Allergies Allergies: Coded Allergies: No Known Allergy (Unverified , 03/29/16) PMhx/Soc History of Surgery: Yes ( X1) Anesthesia Reaction: No Hx Neurological Disorder: No Hx Respiratory Disorders: No Hx Cardiac Disorders: No Hx Psychiatric Problems: No Hx Miscellaneous Medical Probl: Yes (hypothyroidism, dm type 1, dka) Hx Alcohol Use: Yes (OCCASIONAL) Hx Substance Use: No Hx Tobacco Use: Yes (OCCASIONAL SMOKER) Smoking Status: Current some day smoker Physical Exam Vitals Vital Signs Date Time Temp Pulse Resp B/P Pulse Ox O2 Delivery O2 Flow Rate FiO2 08/16/16 03:09 94.9 117 23 100 Physical Exam Const: [] Head: Atraumatic Eyes: Normal Conjunctiva ENT: Normal External Ears, Nose and Mouth. Neck: Full range of motion..~ No meningismus. Resp: Clear to auscultation bilaterally Cardio: Regular rate and rhythm, no murmurs Abd: Soft, non tender, non distended. Normal bowel sounds Skin: No petechiae or rashes Back: No midline or flank tenderness Ext: No cyanosis, or edema Neur: Awake and alert Psych: Normal Mood and Affect Result Diagram: 08/16/16 0302 08/16/16 0302 Results 24 hrs Laboratory Tests Test 08/16/16 03:02 08/16/16 03:28 08/16/16 03:30 08/16/16 04:04 White Blood Count 12.710^3/ul Red Blood Count 3.8510^6/ul Hemoglobin 10.9g/dl Hematocrit 36.9% Mean Corpuscular Volume 95.8fl Mean Corpuscular Hemoglobin 28.3pg Mean Corpuscular Hemoglobin Concent 29.5g/dl Red Cell Distribution Width 19.0% Platelet Count 99519^3/UL Mean Platelet Volume 9.3fl Neutrophils % 38.2% Lymphocytes % 49.2% Monocytes % 10.2% Eosinophils % 0.1% Basophils % 0.6% Nucleated Red Blood Cells % 0.0/100WBC Neutrophils # 4.910^3/ul Lymphocytes # 6.210^3/ul Monocytes # 1.310^3/ul Eosinophils # 0.010^3/ul Basophils # 0.110^3/ul Nucleated Red Blood Cells # 0.010^3/ul Sodium Level 139mmol/L Potassium Level 4.3mmol/L Chloride Level 97mmol/L Carbon Dioxide Level < 5mmol/L Anion Gap 41 Blood Urea Nitrogen 14mg/dl Creatinine 1.00mg/dl Glucose Level 692mg/dl Lactic Acid Level 2.4mmol/L Calcium Level 8.4mg/dl Phosphorus Level 7.9mg/dl Magnesium Level 2.2mg/dl Total Bilirubin 0.1mg/dl Direct Bilirubin 0.00mg/dl Indirect Bilirubin 0.1mg/dl Aspartate Amino Transf (AST/SGOT) 379IU/L Alanine Aminotransferase (ALT/SGPT) 319IU/L Alkaline Phosphatase 500IU/L Troponin I < 0.012ng/ml Total Protein 9.4g/dl Albumin 3.9g/dl Globulin 5.50g/dl Albumin/Globulin Ratio 0.70 Lipase 81U/L Urine Color LT. YELLOW Urine Clarity CLEAR Urine pH 5.5 Urine Specific [place] 1.020 Urine Ketones 3+ Urine Nitrite NEGATIVE Urine Bilirubin NEGATIVE Urine Urobilinogen 0.2 E.U./dL Urine Leukocyte Esterase NEGATIVE Urine Microscopic RBC 0-2/HPF Urine Microscopic WBC 0-2/HPF Urine Squamous Epithelial Cells FEW Urine Amorphous Urates MODERATE Urine Granular Casts FEW Urine Hemoglobin TRACE Urine Glucose 0.5%% Urine Total Protein 1+ Bedside Urine pH (LAB) 5.0 Bedside Urine Protein (LAB) 2+ Bedside Urine Glucose (UA) 0.50% Bedside Urine Ketones (LAB) 4+ Bedside Urine Blood Trace-lysed Bedside Urine Nitrite (LAB) Negative Bedside Urine Leukocyte Esterase (L Negative Blood Gas Specimen Source Blood arterial Arterial Blood Date Drawn 08/16/2016 4:48:14 AM Arterial Blood pH (Temp corrected) 6.865 Arterial Blood pCO2 (Temp correct) 10.3mmhg Arterial Blood pO2 (Temp corrected) 158.4mmHG Arterial Blood HCO3 1.8mmol/L Arterial Blood Base Excess -30.1mmol/L Arterial Blood Oxygen Saturation 98.0mmHG Joshua Test ACCEPTAB Arterial Blood Gas Puncture Site Right Radial Arterial Blood Carboxyhemoglobin 0.3% Arterial Blood Methemoglobin 0.4% Oxyhemoglobin Percent 97.3% Total Hemoglobin 11.5g/dl Blood Gas Temperature 37.0C Blood Gas Modality ROOM AIR FiO2 21.0% Blood Gas Critical Value Read Back Damien STEVEN MD Blood Gas Notified Whom MG Blood Gas Notified Time 08/16/2016 4:52:42 AM Current Medications Medications (Trade) Dose Ordered Sig/Maya Route PRN Reason Start Time Stop Time Status Last Admin Dose Admin Sodium Chloride (NS) 2,000 ml @ 1,000 mls/hr Q2H STAT IV 08/16/16 03:07 08/16/16 05:06 08/16/16 03:24 Insulin Human Lispro (Humalog) 10 unit ONCE STAT SC 08/16/16 03:07 08/16/16 03:09 DC 08/16/16 03:25 Morphine Sulfate (morphine) 4 mg ONCE STAT IV 08/16/16 03:07 08/16/16 03:09 DC 08/16/16 03:22 Ondansetron HCl 4 mg 4 mg ONCE STAT IV 08/16/16 03:07 08/16/16 03:09 DC 08/16/16 03:21 Insulin Human Regular/Sodium Chloride (Novolin-R/NS) 100 ml @ 8.41 mls/hr [id number] IV 08/16/16 03:45 08/16/16 04:05 Procedures/MDM Patient's infectious symptoms have not stabilized and the patient is at risk of rapid decompensation. The patient will be admitted for careful hydration, antibiotic therapy, and infectious source control. Severe Sepsis Assessment: Infectious Source: [pyleonephritis] End organ damage indicated by: [Lactate > 2.0 mmol/L Severe Sepsis Managment: Blood Cultures X 2 before broad spectrum antibiotics initiated within 3 hours of recognition. 30 ml/kg NS bolus Completed Initial Lactate: 2.4 Repeat Lactate pending Critical Care: Time: 51 minutes Treatments/Evaluations: Emergent fluid management, while maintaining close respiratory support. Immediate broad spectrum antibiotic therapy. Simultaneous assessment for possible sources in order to direct therapy. Consideration for invasive and chemical support to prevent respiratory or cardiac collapse. Patient is as evidence of diabetic ketoacidosis well. Started on insulin drip along with fluid hydration. Accepting Care Team: Current data and ongoing care discussed. Time: 5 AM Primary Provider: Hospitalist Consulting: [XOXOXO] Outstanding Data: none Departure Diagnosis: Primary Impression: Hyperglycemia Additional Impressions: Diabetic ketoacidosis Qualified Code: E13.10 - Diabetic ketoacidosis without coma associated with type 2 diabetes mellitus Sepsis Qualified Code: A41.9 - Sepsis, due to unspecified organism Metabolic acidosis Condition: Critical MARIELLE STEVEN Aug 16, 2016 05:09
[2016-08-16] MEDS ORDERED: VANCOMYCIN 1 GM (PMX) 250 ML IVPB ONE (05:30)
[2016-08-16] MEDS ORDERED: DEXTROSE 50% 50 ML SYRINGE IV PRN ×4 (05:30→08:30)
[2016-08-16] MEDS ORDERED: LACTATED RINGER'S 1,000 ML IV SCH (06:01)
[2016-08-16] MEDS: ACCU-CHEK XX SCH ×20 (06:02→22:30)
[2016-08-16] MEDS ORDERED: NS + KCL 20 MEQ 1,000 ML IV SCH (07:01)
[2016-08-16 08:00] LABS: HAAIG REFLEX REFLEX FILED
[2016-08-16 08:04] LABS: CHLORIDE 110 mmol/L (97-110); POTASSIUM 3.3 mmol/L (3.5-5.1); SODIUM 145 mmol/L (135-144)
[2016-08-16 08:07] LABS: BLOOD UREA NITROGEN 13 mg/dl (7-20); CALCIUM 7.3 mg/dl (8.4-10.2); GLUCOSE 396 mg/dl (70-220)
[2016-08-16 08:14] LABS: CARBON DIOXIDE < 5 mmol/L (21-31)
[2016-08-16] MEDS ORDERED: DEXTROSE 5%-0.45% NACL 1,000 ML IV SCH (08:16)
[2016-08-16] MEDS ORDERED: NA BICARBONATE 8.4% 50 ML SYG ONE (08:19)
[2016-08-16] MEDS ORDERED: NA BICARBONATE 8.4% 50 ML SYG IV ONE (08:30)
[2016-08-16] MEDS ORDERED: ONDANSETRON 4 MG INJ IV PRN (08:30)
[2016-08-16] MEDS ORDERED: DOCUSATE SODIUM 100 MG CAP PO SCH (09:00)
[2016-08-16] MEDS: FAMOTIDINE 20 MG INJ IV SCH ×2 (09:00→22:09)
[2016-08-16] MEDS ORDERED: ENOXAPARIN 40 MG/0.4 ML SYG SC SCH (09:00)
[2016-08-16 09:16] LABS: HEPATITIS B CORE ANTIBODY NEGATIVE (NEGATIVE)
[2016-08-16] MEDS: DOCUSATE SODIUM 100 MG CAP PO SCH ×2 (10:00→21:00)
[2016-08-16 10:12] LABS: MAGNESIUM 1.9 mg/dl (1.7-2.5); PHOSPHORUS 6.1 mg/dl (2.5-4.9)
[2016-08-16] MEDS: SOD CHLORIDE 0.9% 1,000 ML IV SCH ×3 (10:18→21:36)
[2016-08-16] MEDS ORDERED: NPH,100V SQ (11:30)
[2016-08-16] MEDS ORDERED: INSU100I12 SQ (11:31)
[2016-08-16 12:24] LABS: BARBITURATES Negative (NEGATIVE); BENZODIAZEPINES Negative (NEGATIVE); CANNABINOIDS Negative (NEGATIVE); COCAINE Negative (NEGATIVE); OPIATES Negative (NEGATIVE)
--- NOTE | 2016-08-16 12:57 | HP ---
DATE OF ADMISSION: 08/16/2016 PRESENTING COMPLAINT: Abdominal pain and elevated blood sugar. HISTORY OF PRESENTING COMPLAINT: This is a 31-year-old patient who is known to our service, noncompliant, who is constantly here because of an DKA. The patient admits to noncompliance with insulin therapy. She was just recently discharged after the same 07/19/2016. At this time, she is very lethargic and sleepy and as such, she is not very cooperative with the history and physical, but she does admit to insulin noncompliance. She reports abdominal pain is somewhat improved. PAST MEDICAL HISTORY: Positive for diabetes, hypothyroidism. HOME MEDICATIONS: She is supposed to be on: 1. 40 units of Lantus daily. 2. 12 units of NovoLog with meals. 3. 100 mcg of Synthroid before meal. PAST SURGICAL HISTORY: x2. ALLERGIES: NO KNOWN DRUG ALLERGIES. SOCIAL HISTORY: Denies tobacco or illicit drug use at this time, but she has said in the recent past that she does smoke tobacco occasionally. She does endorse occasional alcohol use. FAMILY HISTORY: Positive for type 1 diabetes in her father and hypertension in her mother. PHYSICAL EXAMINATION: VITAL SIGNS: At this time, temperature max has been 98.0, heart rate is currently 97, respirations 16, blood pressure 120/99, saturations 100% on room air. GENERAL: She is lethargic, but she is arousable. Once aroused, she is oriented , following commands appropriately. HEENT: Head is normocephalic. Pupils are equal, round and reactive. Mucous membranes are very dry. Posterior pharynx: She has some whitish coat on the tongue, but is not on the posterior pharynx, not concerning for thrush. NECK: Supple without adenopathy, JVD. CHEST: Clear to auscultation, good air entry on both sides. CARDIOVASCULAR: S1 and S2, no murmurs. ABDOMEN: Soft, nontender, nondistended, normoactive bowel sounds. EXTREMITIES: There is no lower extremity edema. LABORATORY VALUES: Her glucose when she first came in was 692. Lactic acid was elevated at 2.4. Hemoglobin A1c was 12. Anion gap was 41, CO2 was less than 5 , creatinine was 1 and phosphorus of 7.9. Her LFTs are also elevated, AST 379, ALT 319 and alkaline phosphatase 500, but her bilirubin levels were normal. Troponin was negative. Urine toxicology screen has not been done. Hematology: She does have a leukocytosis of 12,000. She also has a chronic hypochromic anemia, this is stable, probably hemoconcentrated because her baseline seems to be about between 8 and 9. Platelet count is elevated at 487, likely reactive. Lactic acid has increased to 3.5. At this point, she has been started on the insulin drip per protocol for DKA by the emergency room doctors. IMPRESSION: A 31-year-old noncompliant female with recurrent episodes of diabetic ketoacidosis, who is back and being managed for the followin. Diabetic ketoacidosis secondary to insulin noncompliance. 2. Chronic hypothyroidism. 3. Systemic inflammatory response syndrome with lactic acidosis secondary to diabetic ketoacidosis. 4. Severe metabolic acidosis consistent with diabetic ketoacidosis. PLAN: Admit to intensive care unit. Insulin drip, supportive care, n.p.o., aggressive IV fluid hydration and physically see how she does. We will continue her home thyroid medication. We will use sequential compression devices for prophylaxis and also include Pepcid in her regimen. I have spoken with her in detail. She is quite lethargic, I am not sure how much she is understanding. I will continue to keep a close eye on her. We will be doing BMPs every 4 hours and titrate her regimen as indicated. Dictated By: TERESO BRASHER MD, BA/NONA Conf#: [id number] DID#: [id number]
[2016-08-16 15:16] LABS: CREATININE 0.64 mg/dl (0.44-1.00)
[2016-08-16 15:17] LABS: CALCIUM 7.3 mg/dl (8.4-10.2)
[2016-08-16 15:20] LABS: POTASSIUM 2.4 mmol/L (3.5-5.1)
[2016-08-16 16:56] LABS: CREATININE 0.53 mg/dl (0.44-1.00)
[2016-08-16 16:57] LABS: CALCIUM 7.1 mg/dl (8.4-10.2)
[2016-08-16] MEDS ORDERED: KCL IV SCH (17:00)
[2016-08-16] MEDS ORDERED: POTASSIUM CHLORIDE IV SCH (17:00)
[2016-08-16] MEDS ORDERED: POTASSIUM CHLORIDE 20 MEQ in SOD CHLORIDE 0.9% 1,000 ML IV SCH (17:00)
[2016-08-16] MEDS ORDERED: NS IV SCH (17:00)
[2016-08-16 17:05] LABS: POTASSIUM 2.3 mmol/L (3.5-5.1)
[2016-08-16] MEDS: D5W-0.45 NACL + KCL 20 MEQ 1,000 ML IV SCH ×2 (17:16→23:31)
[2016-08-16] MEDS: NS + KCL 20 MEQ 1,000 ML IV SCH (17:30)
[2016-08-16] MEDS: POTASSIUM CHLORIDE 250 ML IVPB SCH ×2 (17:42→21:00)
[2016-08-16] MEDS: LEVOTHYROXINE 100 MCG TAB PO SCH (17:43)
[2016-08-16] MEDS: morphine 2 MG INJ IV PRN (20:32)
[2016-08-16 21:00] LABS: CREATININE 0.51 mg/dl (0.44-1.00)
[2016-08-16 21:01] LABS: CALCIUM 7.2 mg/dl (8.4-10.2)
[2016-08-16 21:02] LABS: POTASSIUM 2.8 mmol/L (3.5-5.1)
[2016-08-16] MEDS ORDERED: INSULIN GLARGINE [LANtus] 3 ML PEN SC ONE (21:30)
[2016-08-17] MEDS: ACCU-CHEK XX SCH (00:03)
[2016-08-17] MEDS: NS + KCL 20 MEQ 1,000 ML IV SCH ×2 (00:05→05:49)
[2016-08-17 01:31] VITALS: PULSE 119; TEMP 97.8
[2016-08-17 02:42] VITALS: Ht 165.1 cm; Wt 57.9 kg
[2016-08-17] MEDS: morphine 2 MG INJ IV PRN ×4 (03:08→18:28)
[2016-08-17] MEDS: SOD CHLORIDE 0.9% 1,000 ML IV SCH (04:16)
[2016-08-17] MEDS: LEVOTHYROXINE 100 MCG TAB PO SCH (05:49)
[2016-08-17 07:09] VITALS: BP 137/65; RESP 20
[2016-08-17] MEDS: INSULIN ASPART [NOVOLOG] 3 ML PEN SC SCH ×4 (07:50→20:55)
[2016-08-17 08:14] LABS: ADD SCAN DIFF NO
[2016-08-17 08:17] LABS: BASOPHILS % 0.3 % (0.0-2.0); EOSINOPHILS # 0.1 10^3/ul (0.0-0.5); EOSINOPHILS % 1.8 % (0.0-7.0); HEMATOCRIT 27.8 % (37.0-47.0); HEMOGLOBIN 8.9 g/dl (12.0-16.0); LYMPHOCYTES # 2.5 10^3/ul (0.8-2.9); LYMPHOCYTES % 40.9 % (15.0-51.0); MEAN CORPUSCULAR HEMOGLOBIN 28.5 pg (29.0-33.0); MEAN CORPUSCULAR VOLUME 89.1 fl (82.0-101.0); MEAN PLATELET VOLUME 8.9 fl (7.4-10.4); MONOCYTE # 0.5 10^3/ul (0.3-0.9); MONOCYTES % 7.6 % (0.0-11.0); NEUTROPHILS % 49.1 % (39.0-77.0); PLATELET COUNT 250 10^3/UL (140-415); RED BLOOD COUNT 3.12 10^6/ul (4.20-5.40); RED CELL DISTRIBUTION WIDTH 19.2 % (11.5-14.5); WHITE BLOOD COUNT 6.1 10^3/ul (4.8-10.8)
[2016-08-17 08:36] VITALS: BP 116/77; RESP 18
[2016-08-17 08:45] LABS: ALBUMIN 2.5 g/dl (3.3-4.9); ALBUMIN/GLOBULIN RATIO 0.59; BILIRUBIN,INDIRECT 0.2 mg/dl (0-1.1); BILIRUBIN,TOTAL 0.2 mg/dl (0.2-1.3); CALCIUM 7.5 mg/dl (8.4-10.2); CREATININE 0.55 mg/dl (0.44-1.00); MAGNESIUM 1.4 mg/dl (1.7-2.5); POTASSIUM 3.4 mmol/L (3.5-5.1); TOTAL PROTEIN 6.7 g/dl (6.1-8.1)
[2016-08-17] MEDS: DOCUSATE SODIUM 100 MG CAP PO SCH ×2 (08:50→21:00)
[2016-08-17] MEDS: FAMOTIDINE 20 MG INJ IV SCH ×2 (08:50→20:54)
[2016-08-17] MEDS ORDERED: MAGNESIUM SULFATE 2 GM/50 ML 50 ML IVPB ONE (12:00)
[2016-08-17] MEDS ORDERED: POTASSIUM PHOSPHATE 20 MEQ in SOD CHLORIDE 0.9% 250 ML IVPB ONE (13:00)
--- NOTE | 2016-08-17 13:08 | PN ---
Date/Time of Note Date/Time of Note DATE: 08/17/16 TIME: 13:05 Assessment/Plan VTE Prophylaxis VTE Prophylaxis Intervention: ambulation, SCD's Lines/Catheters IV Catheter Type (from [email or web address] Saline Lock Assessment/Plan Assessment/Plan A 31-year-old noncompliant female with recurrent episodes of diabetic ketoacidosis, who is back and being managed for the followin. Diabetic ketoacidosis secondary to insulin noncompliance: resolved 2. Chronic hypothyroidism. 3. Systemic inflammatory response syndrome with lactic acidosis secondary to diabetic ketoacidosis.: resolved 4. Severe metabolic acidosis consistent with diabetic ketoacidosis: improved 5. Poorly controlled DM type 1 2/2 non compliance A!C 12.0 6. Substance abuse (Meth) PLAN: * spoke for a long time with patient on diabetic education and the need to stop abusing drugs * Patient has been educated multiple times on both issues and continues with destructive behaviour. * I asked if there was any way we could help and she said no, she understands that she needs to make the effort on her own. * We will continue to re-inforce the need for change during her hospitalization * Continue current supportive care / insulin regimen * Possible discharge tomorrow. Visit time >30mins Subjective 24 Hr Interval Summary Free Text/Dictation feels better, but very tired and lethargic understands that poorly controlled DM and continued drug use will shorten her life significantly and make it very complicated. Exam/Review of Systems Vital Signs Vitals Vital Signs Date Time Temp Pulse Resp B/P Pulse Ox O2 Delivery O2 Flow Rate FiO2 08/17/16 08:36 98.0 100 18 116/77 100 08/17/16 01:00 Room Air Intake and Output 08/16/16 08/16/16 08/17/16 15:00 23:00 07:00 Intake Total 1250 ml 1700 ml Balance 1250 ml 1700 ml Exam Constitutional: alert, oriented Eyes: PERRL Neck: supple Respiratory: clear to auscultation, normal air movement Cardiovascular: nl pulses, regular rate and rhythm Gastrointestinal: bowel sounds, non-tender, soft Extremities: No edema Neurological: lethargic, No confused Results Result Diagram: 08/17/16 0726 08/17/16 0726 Results 24 hrs Laboratory Tests Test 08/16/16 13:54 08/16/16 14:40 08/16/16 14:41 08/16/16 16:12 Bedside Glucose 91 99 91 Sodium Level 143 Potassium Level 2.4 *L Chloride Level 111 H Carbon Dioxide Level 15 #L Anion Gap 19 #H Blood Urea Nitrogen 11 Creatinine 0.64 Glucose Level 105 # Calcium Level 7.3 L Test 08/16/16 16:25 08/16/16 17:56 08/16/16 19:24 08/16/16 20:20 Sodium Level 141 140 Potassium Level 2.3 *L 2.8 *L Chloride Level 110 110 Carbon Dioxide Level 15 L 19 L Anion Gap 18 H 14 Blood Urea Nitrogen 10 9 Creatinine 0.53 0.51 Glucose Level 93 66 #L Calcium Level 7.1 L 7.2 L Bedside Glucose 73 75 Test 08/16/16 20:31 08/16/16 20:42 08/16/16 21:17 08/16/16 23:52 Bedside Glucose 56 L 110 221 H Magnesium Level 1.3 L Test 08/17/16 07:26 08/17/16 07:48 08/17/16 11:56 White Blood Count 6.1 # Red Blood Count 3.12 L Hemoglobin 8.9 L Hematocrit 27.8 #L Mean Corpuscular Volume 89.1 Mean Corpuscular Hemoglobin 28.5 L Mean Corpuscular Hemoglobin Concent 32.0 Red Cell Distribution Width 19.2 H Platelet Count 250 # Mean Platelet Volume 8.9 Neutrophils % 49.1 Lymphocytes % 40.9 Monocytes % 7.6 Eosinophils % 1.8 Basophils % 0.3 Nucleated Red Blood Cells % 0.0 Neutrophils # 3.0 Lymphocytes # 2.5 Monocytes # 0.5 Eosinophils # 0.1 Basophils # 0.0 Nucleated Red Blood Cells # 0.0 Sodium Level 138 Potassium Level 3.4 L Chloride Level 114 H Carbon Dioxide Level 17 L Anion Gap 10 Blood Urea Nitrogen 6 L Creatinine 0.55 Glucose Level 92 Calcium Level 7.5 L Phosphorus Level 1.6 #L Magnesium Level 1.4 L Total Bilirubin 0.2 Direct Bilirubin 0.00 Indirect Bilirubin 0.2 Aspartate Amino Transf (AST/SGOT) 208 H Alanine Aminotransferase (ALT/SGPT) 188 H Alkaline Phosphatase 314 H Total Protein 6.7 # Albumin 2.5 #L Globulin 4.20 H Albumin/Globulin Ratio 0.59 Bedside Glucose 89 100 Medications Medications Current Medications Morphine Sulfate (morphine) 2 mg Q4H PRN IV PAIN LEVEL 7-10 Last administered on 08/17/16 08:50; Admin Dose 2 MG; Start 08/16/16 at 05:30 Famotidine (Pepcid Iv) 20 mg Q12 IV Last administered on 08/17/16 08:50; Admin Dose 20 MG; Start 08/16/16 at 09:00 Dextrose (D50w Syringe) 50 ml Q15M PRN IV For BS 50 or less; Start 08/16/16 at 08:30 Dextrose (D50w Syringe) 25 ml Q15M PRN IV BS between 50-70; Start 08/16/16 at 08 :30 Ondansetron HCl (Zofran Inj) 4 mg Q6H PRN IV NAUSEA AND/OR VOMITING Last administered on 08/17/16 03:08; Admin Dose 4 MG; Start 08/16/16 at 08:30 Docusate Sodium 100 mg 100 mg BID PO ; Start 08/16/16 at 10:00 Potassium Phosphate 20 meq/ Sodium Chloride 254.5455 ml @ 63.636 m... ONCE ONCE IVPB Last administered on 08/17/16 13:03; Admin Dose 63.636 MLS/HR; Start 08/17/16 at 13:00; Stop 08/17/16 at 16:59 Magnesium Sulfate (Magnesium Sulfate 2 Gm/50 ml) 50 ml @ 25 mls/hr ONCE ONCE IVPB Last administered on 08/17/16 11:42; Admin Dose 25 MLS/HR; Start 08/17/16 at 12:00; Stop 08/17/16 at 13:59 TERESO BRASHER Aug 17, 2016 13:08
[2016-08-17 19:30] VITALS: BP 114/76; RESP 18
[2016-08-18] MEDS: morphine 2 MG INJ IV PRN ×3 (00:38→09:31)
[2016-08-18 05:40] LABS: ADD SCAN DIFF NO
[2016-08-18 05:44] LABS: BASOPHILS % 0.4 % (0.0-2.0); EOSINOPHILS % 0.8 % (0.0-7.0); HEMATOCRIT 26.4 % (37.0-47.0); HEMOGLOBIN 8.2 g/dl (12.0-16.0); LYMPHOCYTES # 2.3 10^3/ul (0.8-2.9); MEAN CORPUSCULAR HEMOGLOBIN 27.3 pg (29.0-33.0); MEAN CORPUSCULAR HGB CONC 31.1 g/dl (32.0-37.0); MEAN PLATELET VOLUME 8.9 fl (7.4-10.4); MONOCYTE # 0.5 10^3/ul (0.3-0.9); MONOCYTES % 9.9 % (0.0-11.0); NEUTROPHILS % 41.7 % (39.0-77.0); PLATELET COUNT 197 10^3/UL (140-415); RED CELL DISTRIBUTION WIDTH 19.7 % (11.5-14.5); WHITE BLOOD COUNT 4.9 10^3/ul (4.8-10.8)
[2016-08-18] MEDS: LEVOTHYROXINE 100 MCG TAB PO SCH (06:14)
[2016-08-18 06:26] LABS: POTASSIUM 3.6 mmol/L (3.5-5.1)
[2016-08-18 06:29] LABS: CALCIUM 7.8 mg/dl (8.4-10.2); CREATININE 0.49 mg/dl (0.44-1.00)
[2016-08-18] MEDS ORDERED: INSULIN GLARGINE [LANtus] 3 ML PEN SC ONE (08:00)
[2016-08-18] MEDS ORDERED: INSULIN REGULAR, HUMAN 100 UNIT/1 ML 3ML VIAL IV ONE (08:00)
[2016-08-18] MEDS: INSULIN ASPART [NOVOLOG] 3 ML PEN SC SCH ×6 (08:02→20:19)
[2016-08-18 08:39] VITALS: BP 112/71; RESP 20
[2016-08-18] MEDS: DOCUSATE SODIUM 100 MG CAP PO SCH ×2 (09:00→20:06)
[2016-08-18] MEDS: FAMOTIDINE 20 MG INJ IV SCH (09:31)
[2016-08-18] MEDS ORDERED: NOVO3I SC ×2 (09:35→11:21)
[2016-08-18] MEDS ORDERED: LANT3I SC ×2 (09:53→11:21)
--- NOTE | 2016-08-18 09:57 | PN ---
Date/Time of Note Date/Time of Note DATE: 08/18/16 TIME: 09:55 Assessment/Plan VTE Prophylaxis VTE Prophylaxis Intervention: ambulation, SCD's Lines/Catheters IV Catheter Type (from Nrs): Saline Lock Assessment/Plan Assessment/Plan A 31-year-old noncompliant female with recurrent episodes of diabetic ketoacidosis, who is back and being managed for the followin. Diabetic ketoacidosis secondary to insulin noncompliance: resolved 2. Chronic hypothyroidism. 3. Systemic inflammatory response syndrome with lactic acidosis secondary to diabetic ketoacidosis.: resolved 4. Severe metabolic acidosis consistent with diabetic ketoacidosis: improved 5. Poorly controlled DM type 1 2/2 non compliance A!C 12.0 6. Substance abuse (Meth) PLAN: * spoke for a long time with patient on diabetic education and the need to stop abusing drugs * Patient has been educated multiple times on both issues and continues with destructive behaviour. * I asked if there was any way we could help and she said no, she understands that she needs to make the effort on her own. * We will continue to re-inforce the need for change during her hospitalization * Continue current supportive care / adjust insulin regimen * Possible discharge tomorrow. Subjective 24 Hr Interval Summary Free Text/Dictation no new issues blood sugars still somewhat elevated Exam/Review of Systems Vital Signs Vitals Vital Signs Date Time Temp Pulse Resp B/P Pulse Ox O2 Delivery O2 Flow Rate FiO2 08/18/16 08:39 97.8 108 20 112/71 98 08/17/16 01:00 Room Air Intake and Output 08/17/16 08/17/16 08/18/16 15:00 23:00 07:00 Intake Total 950 ml 854.5455 ml 400 ml Output Total 1200 ml 800 ml Balance 950 ml -345.4545 ml -400 ml Exam Constitutional: alert, oriented Psych: nl mood/affect Head: normocephalic ENMT: mucosa pink and moist Neck: supple Respiratory: clear to auscultation Cardiovascular: regular rate and rhythm Gastrointestinal: non-tender, soft Extremities: No edema Neurological: nl mental status Results Result Diagram: 08/18/16 0439 08/18/16 0439 Results 24 hrs Laboratory Tests Test 08/17/16 11:56 08/17/16 17:10 08/17/16 20:52 08/18/16 04:39 Bedside Glucose 100 273 H 212 White Blood Count 4.9 Red Blood Count 3.00 L Hemoglobin 8.2 L Hematocrit 26.4 L Mean Corpuscular Volume 88.0 Mean Corpuscular Hemoglobin 27.3 L Mean Corpuscular Hemoglobin Concent 31.1 L Red Cell Distribution Width 19.7 H Platelet Count 197 # Mean Platelet Volume 8.9 Neutrophils % 41.7 Lymphocytes % 47.0 Monocytes % 9.9 Eosinophils % 0.8 Basophils % 0.4 Nucleated Red Blood Cells % 0.0 Neutrophils # 2.0 Lymphocytes # 2.3 Monocytes # 0.5 Eosinophils # 0.0 Basophils # 0.0 Nucleated Red Blood Cells # 0.0 Sodium Level 134 L Potassium Level 3.6 Chloride Level 103 # Carbon Dioxide Level 22 Anion Gap 13 Blood Urea Nitrogen 11 Creatinine 0.49 Glucose Level 383 #H Calcium Level 7.8 L Test 08/18/16 07:36 08/18/16 09:06 Bedside Glucose 414 *H 280 H Medications Medications Current Medications Morphine Sulfate (morphine) 2 mg Q4H PRN IV PAIN LEVEL 7-10 Last administered on 08/18/16 09:31; Admin Dose 2 MG; Start 08/16/16 at 05:30 Famotidine (Pepcid Iv) 20 mg Q12 IV Last administered on 08/18/16 09:31; Admin Dose 20 MG; Start 08/16/16 at 09:00 Dextrose (D50w Syringe) 50 ml Q15M PRN IV For BS 50 or less; Start 08/16/16 at 08:30 Dextrose (D50w Syringe) 25 ml Q15M PRN IV BS between 50-70; Start 08/16/16 at 08 :30 Ondansetron HCl (Zofran Inj) 4 mg Q6H PRN IV NAUSEA AND/OR VOMITING Last administered on 08/17/16 03:08; Admin Dose 4 MG; Start 08/16/16 at 08:30 Docusate Sodium (Colace) 100 mg BID PO ; Start 08/16/16 at 10:00 Insulin Glargine (Lantus) 20 unit DAILY@08 SC ; Start 08/19/16 at 08:00 TERESO BRASHER Aug 18, 2016 09:57
[2016-08-18 19:00] VITALS: BP 119/82; RESP 18
[2016-08-18] MEDS: FAMOTIDINE 20 MG TAB PO SCH (20:20)
[2016-08-18] MEDS: HYDROCODONE/APAP (7.5/325) TAB PO PRN (20:27)
[2016-08-19] MEDS: HYDROCODONE/APAP (7.5/325) TAB PO PRN (04:40)
[2016-08-19 05:28] LABS: ADD SCAN DIFF NO; BASOPHILS % 0.5 % (0.0-2.0); EOSINOPHILS % 0.9 % (0.0-7.0); HEMATOCRIT 25.2 % (37.0-47.0); LYMPHOCYTES # 2.7 10^3/ul (0.8-2.9); LYMPHOCYTES % 62.6 % (15.0-51.0); MEAN CORPUSCULAR HEMOGLOBIN 28.2 pg (29.0-33.0); MEAN CORPUSCULAR HGB CONC 31.7 g/dl (32.0-37.0); MEAN CORPUSCULAR VOLUME 88.7 fl (82.0-101.0); MEAN PLATELET VOLUME 9.3 fl (7.4-10.4); MONOCYTE # 0.4 10^3/ul (0.3-0.9); MONOCYTES % 9.4 % (0.0-11.0); NEUTROPHIL # 1.2 10^3/ul (1.6-7.5); NEUTROPHILS % 26.4 % (39.0-77.0); PLATELET COUNT 210 10^3/UL (140-415); RED BLOOD COUNT 2.84 10^6/ul (4.20-5.40); RED CELL DISTRIBUTION WIDTH 19.1 % (11.5-14.5); WHITE BLOOD COUNT 4.4 10^3/ul (4.8-10.8)
[2016-08-19 05:48] LABS: POTASSIUM 3.8 mmol/L (3.5-5.1)
[2016-08-19 05:51] LABS: CALCIUM 7.5 mg/dl (8.4-10.2); CREATININE 0.54 mg/dl (0.44-1.00)
[2016-08-19] MEDS: LEVOTHYROXINE 100 MCG TAB PO SCH (06:10)
[2016-08-19] MEDS ORDERED: INSULIN GLARGINE [LANtus] 3 ML PEN SC SCH (08:00)
[2016-08-19 08:16] VITALS: BP 105/61; RESP 18
[2016-08-19] MEDS: DOCUSATE SODIUM 100 MG CAP PO SCH (08:24)
[2016-08-19] MEDS: FAMOTIDINE 20 MG TAB PO SCH (08:24)
[2016-08-19] MEDS: INSULIN ASPART [NOVOLOG] 3 ML PEN SC SCH ×4 (08:29→13:12)
--- NOTE | 2016-08-19 12:26 | DS ---
DATE OF ADMISSION: 08/16/2016 DATE OF DISCHARGE: 08/19/2016 FINAL DIAGNOSES: 1. Diabetic ketoacidosis secondary to insulin noncompliance. Resolved. 2. Chronic hypothyroidism. 3. Systemic inflammatory response syndrome with lactic acidosis secondary to diabetic ketoacidosis. Resolved. 4. Severe metabolic acidosis consistent with DKA. Resolved. 5. Poorly controlled diabetes mellitus type 1 secondary to noncompliance. A1c 12.0. 6. Substance abuse, methamphetamine. INTERVENTIONS: 1. Insulin drip and ICU management via DKA protocol. 2. Serial lab studies. 3. Aggressive counseling on the need for compliance to therapy and the need to stop using drugs. CONSULTANTS ON THE CASE: None. INTERVENTIONS: As summarized above. DISPOSITION: To home. Activities as tolerated. Recommended diet: 1800 ADA. DISCHARGE MEDICATIONS: 1. Lantus 14 units subcutaneously daily. 2. NovoLog insulin 12 units with meals. 3. Levothyroxine 100 mcg before breakfast. HOSPITALIZATION COURSE: Lupis is well known to our service. She comes in almost monthly to [facility] 2 weeks in DKA because she just chooses not to take her insulin. She always has an excuse, statin g that she does not have it, or she forgot it, or she never picked it up. She also has hypothyroidi sm and she is supposed to be on Synthroid 100 mcg every day, but she also is poorly compliant with t hat. She came in again with DKA this time. She is being managed and she is in stable condition. I s poke with her multiple times during this hospitalization about the very reasonable threat of i f she continues this way. I also explained to her that her quality of life will significantly improv e if she just makes an effort to control her blood sugars and stop abusing drugs. I explained to her about the long-term damages diabetes mellitus and the fact that it is a completely manageable disea se. She just has to accept it and walk with her physician to get good control. I hope the patient listens. She is in stable condition now and is to be discharged home for continued outpatient follo wup with her own primary care doctor. Discharge time and planning has been more than 35 minutes. Dictated By: TERESO BRASHER MD, BA/NTS Conf#: [id number] DID#: [id number]
[2016-08-19 15:11] LABS: ALKALINE PHOSPHATASE 385 U/L (33-115); PLACENTAL ISOENZYMES 0 % (UNDETECTABLE)
== END 2016-08-19 15:30 | disposition home or self-care (01) | DRG 638 ==
LOC: E/R 02:53 → MS1 04:59
PROVIDERS: ADMIT Family Medicine; ATTEND Family Medicine
DX: E10.10 Type 1 diabetes mellitus with ketoacidosis without coma (principal); E87.2 Acidosis; I95.89 Other hypotension; R65.10 Systemic inflammatory response syndrome (SIRS) of non-infectious origin without acute organ dysfunction; F15.10 Other stimulant abuse, uncomplicated; E03.8 Other specified hypothyroidism; Z91.14 Patient's other noncompliance with medication regimen
CPT/HCPCS: 36415; 36600; 71010; 80048; 80053; 80307; 81001; 81003; 82043; 82803; 82962; 83036; 83605; 83690; 83735; 84080; 84100; 84484; 85025; 86704; 86709; 86803; 87040; 87086; 87340; 93005; 96361; 96365; 96368; 96372; 96375; 96376; A4310; J0692; J1815; J2270; J2405; J3370; J3475; J3480; J7030; J7042; J7050; J7120